=== PATIENT | female | born 1935 | race Caucasian/White ===

== ENCOUNTER 2019-02-14 20:01 | Inpatient (IN) | payer MEDICARE ==
[~2019-02-14] VITALS: Ht 162.6 cm; Wt 68.9 kg
[2019-02-14] MEDS ORDERED: PRAV20 PO (20:25)
[2019-02-14] MEDS ORDERED: ZOLOFT25 MG PO (20:25)
[2019-02-14 21:13] LABS: BASOPHILS ABSOLUTE AUTO 0.07 K/mm3 (0.00-0.23); BASOPHILS PERCENT AUTO 1 % (0-2); EOSINOPHILS ABSOLUTE AUTO 0.13 K/mm3 (0.00-0.68); EOSINOPHILS PERCENT AUTO 1 % (0-6); Hematocrit 35.1 % (33.0-51.0); Hemoglobin 11.1 g/dL (11.5-16.0); IMMATURE GRAN ABSOLUTE AUTO 0.02 K/mm3 (0.00-0.10); IMMATURE GRAN PERCENT AUTO 0 % (0-1); LYMPHOCYTES ABSOLUTE AUTO 1.66 K/mm3 (0.84-5.20); LYMPHOCYTES PERCENT AUTO 17 % (21-46); MONOCYTES ABSOLUTE AUTO 0.57 K/mm3 (0.16-1.47); MONOCYTES PERCENT AUTO 6 % (4-13); Mean Corpuscular HGB 28.4 pg (26.0-34.0); Mean Corpuscular HGB Conc 31.6 g/dL (31.5-36.5); Mean Corpuscular Volume 90 fL (80-100); Mean Platelet Volume 9.1 fL (9.1-12.4); NEUTROPHILS ABSOLUTE AUTO 7.24 K/mm3 (1.96-9.15); NEUTROPHILS PERCENT AUTO 75 % (41-73); Platelet Count 292 K/mm3 (150-400); RDW Coefficient Variation 15.1 % (11.7-14.2); RDW Standard Deviation 49.8 fL (35.1-46.3); Red Blood Cell Count 3.91 M/mm3 (3.80-5.20); White Blood Cell Count 9.69 K/mm3 (4.00-11.30)
[2019-02-14 21:35] LABS: Alanine Aminotransfer (ALT/SGP 13 U/L (12-78); Albumin, Blood 3.1 g/dL (3.4-5.0); Albumin/Globulin Ratio 0.8 (0.8-1.8); Alk Phos 109 U/L (50-136); Anion Gap 8 mmol/L (6-16); Aspartate Aminotrans (AST/SGOT 17 U/L (12-37); Bilirubin, Total 0.6 mg/dL (0.1-1.0); Blood Urea Nitrogen 13 mg/dL (8-24); Bun/Creatinine Ratio 15.9 (12.0-20.0); CO2, Blood 24 mmol/L (21-32); Calcium, Blood 8.4 mg/dL (8.5-10.1); Chloride, Blood 106 mmol/L (98-108); Creatinine, Blood 0.82 mg/dL (0.40-1.00); Glomerular Filtration Rate >60 (60-); Glucose, Blood 95 mg/dL (70-99); Potassium, Blood 3.4 mmol/L (3.5-5.5); Sodium, Blood 138 mmol/L (136-145); Total Protein, Blood 7.1 g/dL (6.4-8.2)
[2019-02-15 05:01] LABS: BASOPHILS ABSOLUTE AUTO 0.05 K/mm3 (0.00-0.23); BASOPHILS PERCENT AUTO 1 % (0-2); EOSINOPHILS ABSOLUTE AUTO 0.01 K/mm3 (0.00-0.68); EOSINOPHILS PERCENT AUTO 0 % (0-6); Hematocrit 32.6 % (33.0-51.0); Hemoglobin 10.7 g/dL (11.5-16.0); IMMATURE GRAN ABSOLUTE AUTO 0.02 K/mm3 (0.00-0.10); IMMATURE GRAN PERCENT AUTO 0 % (0-1); LYMPHOCYTES ABSOLUTE AUTO 1.64 K/mm3 (0.84-5.20); LYMPHOCYTES PERCENT AUTO 16 % (21-46); MONOCYTES ABSOLUTE AUTO 0.74 K/mm3 (0.16-1.47); MONOCYTES PERCENT AUTO 7 % (4-13); Mean Corpuscular HGB 29.3 pg (26.0-34.0); Mean Corpuscular HGB Conc 32.8 g/dL (31.5-36.5); Mean Corpuscular Volume 89 fL (80-100); Mean Platelet Volume 9.3 fL (9.1-12.4); NEUTROPHILS ABSOLUTE AUTO 7.73 K/mm3 (1.96-9.15); NEUTROPHILS PERCENT AUTO 76 % (41-73); Platelet Count 274 K/mm3 (150-400); RDW Coefficient Variation 15.2 % (11.7-14.2); RDW Standard Deviation 49.8 fL (35.1-46.3); Red Blood Cell Count 3.65 M/mm3 (3.80-5.20); White Blood Cell Count 10.19 K/mm3 (4.00-11.30)
--- NOTE | 2019-02-15 06:46 | NUR ---
SHIFT SUMMARY: PT NEW ADMIT LAST NIGHT FROM ER. ADMITTED FOR L HIP FX. A&O X4. VSS. SURGICAL CONSULT CALLED IN. PT BEDREST WITH 1-2 ASSIST. PT ASSISTED ON TO BEDPAN, HOWEVER UNABLE TO VOID. BLADDER SCAN SHOWED 308ML. PT HAS BEEN NPO SINCE MIDNIGHT.
[2019-02-15 08:51] LABS: Source, Urine Catheter
[2019-02-15 08:54] LABS: Bilirubin, Urine Neg (Neg); Blood, Urine Neg (Neg); Glucose Qualitative, Urine Neg (Neg); Ketones, Urine 1+ (Neg); Leukocyte Esterase, Urine Neg (Neg); Nitrite, Urine Neg (Neg); Protein, Urine Neg (Neg); Urobilinogen, Urine 1+ (Normal)
[2019-02-15 08:56] LABS: Appearance, Urine Clear (Clear); Color, Urine Yellow (P-Yellow)
--- NOTE | 2019-02-15 14:52 | NUR ---
PATIENT TO DAY SURGERY AT THIS TIME. DAUGHTER AND NYDIA ACCOMPANYING.
--- NOTE | 2019-02-15 15:13 | NUR ---
History, Chart, Medications and Allergies reviewed before start of procedure.Lungs clear T/O to Auscultation. Patient confirms NPO status and agrees with scheduled surgery. Pre-Op teaching done. Pt verbalizes understanding.
--- NOTE | 2019-02-15 16:36 | NUR ---
02/15/19 16[address] Sia Womack CATHETER [address] PL[address] UPON ARRIVAL TO OR
--- NOTE | 2019-02-15 17:55 | NUR ---
PATIENT RETURNED TO ROOM FROM PACU. AWAKE, GROGGY. VSS. LS COARSE T/O. BIOX 96% ON 4L PER NC. HRR. L HIP DRESSINGS X 2, D&I. PPP. WIGGLES TOES. PAS AND POLAR PACK IN PLACE. FC PATENT, DRAINING CLEAR VENUS URINE. DENIES NAUSEA, PAIN, CP OR SOB. DAUGHTER AT BEDSIDE. CONT TO MONITOR.
--- NOTE | 2019-02-15 19:02 | NUR ---
PATIENT CONT DENY PAIN. TOLERATING SIPS OF WATER, THEN RETURNS TO SLEEP. VSS. BIOX 90-93& ON 4L O2 PER NC. FC PATENT AND DRAINING. L HIP DRESSINGS X2, D&I. NO ACUTE CHANGES SINCE ARRIVAL FROM PACU. CONT TO MONITOR AND REPORT TO NOC RN. =
[2019-02-16 05:02] LABS: BASOPHILS ABSOLUTE AUTO 0.02 K/mm3 (0.00-0.23); BASOPHILS PERCENT AUTO 0 % (0-2); EOSINOPHILS PERCENT AUTO 0 % (0-6); Hematocrit 32.9 % (33.0-51.0); Hemoglobin 10.2 g/dL (11.5-16.0); IMMATURE GRAN ABSOLUTE AUTO 0.03 K/mm3 (0.00-0.10); IMMATURE GRAN PERCENT AUTO 0 % (0-1); LYMPHOCYTES ABSOLUTE AUTO 0.91 K/mm3 (0.84-5.20); LYMPHOCYTES PERCENT AUTO 11 % (21-46); MONOCYTES ABSOLUTE AUTO 0.52 K/mm3 (0.16-1.47); MONOCYTES PERCENT AUTO 6 % (4-13); Mean Corpuscular HGB 28.4 pg (26.0-34.0); Mean Platelet Volume 9.6 fL (9.1-12.4); NEUTROPHILS ABSOLUTE AUTO 7.13 K/mm3 (1.96-9.15); NEUTROPHILS PERCENT AUTO 83 % (41-73); Platelet Count 259 K/mm3 (150-400); RDW Coefficient Variation 15.2 % (11.7-14.2); RDW Standard Deviation 50.7 fL (35.1-46.3); Red Blood Cell Count 3.59 M/mm3 (3.80-5.20); White Blood Cell Count 8.61 K/mm3 (4.00-11.30)
[2019-02-16 05:12] LABS: Mean Corpuscular Volume 92 fL (80-100)
[2019-02-16 05:19] LABS: Anion Gap 6 mmol/L (6-16); Blood Urea Nitrogen 11 mg/dL (8-24); Bun/Creatinine Ratio 21.1 (12.0-20.0); CO2, Blood 26 mmol/L (21-32); Calcium, Blood 8.3 mg/dL (8.5-10.1); Chloride, Blood 106 mmol/L (98-108); Creatinine, Blood 0.52 mg/dL (0.40-1.00); Glomerular Filtration Rate >60 (60-); Glucose, Blood 120 mg/dL (70-99); Magnesium, Blood 1.8 mg/dL (1.6-2.4); Potassium, Blood 4.2 mmol/L (3.5-5.5); Sodium, Blood 138 mmol/L (136-145)
--- NOTE | 2019-02-16 06:20 | NUR ---
SUMMARY PT WITH HICCUP LIKE INSPIRATIONS. EVEN RISE AND FALL OF CHEST.SATS WHILE SLEEPING 91 %,WHILE AWAKE 93% DENIED SOB. STATES LIVES ALONE,SO VERB SHE IS UNABLE TO SAY IF THIS IS NORMAL FOR HER.I DECREASED PILLOW SIZE WHICH IMPROVED THIS APPEARANCE. PT CONTINUED WITH NO SOB.SLEPT QUIETLY BETWEEN REPOSITIONING. AWAKENED EASILY WITH NO DISTRESS.
--- NOTE | 2019-02-16 09:18 | NUR ---
recvd report from previous shift RN Teddy, pt sleeping in bed, bed rails up x 2, bed in lowest position, call light within reach
--- NOTE | 2019-02-16 09:50 | NUR ---
physical therapy with pt, dr Allen rounding on pt
--- NOTE | 2019-02-16 11:10 | NUR ---
OT working with pt
--- NOTE | 2019-02-16 11:40 | NUR ---
family in room with pt
--- NOTE | 2019-02-16 18:25 | NUR ---
shift summary: vss, no acute changes, pt worked with PT/OT this shift, visited by friends/family x 3. pt up to chair for several hours this shift, appears to have taken a nap this afternoon for approx 2 hrs. pt tolerated PO intake with no n/v. rivera catheter dc approx 1815 this shift following bladder training. pt transfers with TTWB, fww/gait belt. l hip dressing c/d/i.
--- NOTE | 2019-02-17 06:47 | NUR ---
CATH DCD PER DAY RN AND PT WITH BLADDER SCAN OF 290ML THIS AM.OOB TO BSC WITH VOID OF 200 ML. WILL CONTINUE TO MONITOR OUTPUT. 2 ASSIST BSC. TOLERATED.
--- NOTE | 2019-02-17 17:33 | NUR ---
STRAIGHT CATH PT REQUIRED STRAIGHT CATH TO EMPTY HER BLADDER. PVR SHOWED 336ML IN HER BLADDER AFTER SHE VOIDED 250ML. 600ML OF URINE WAS EMPTIED WITH STRAIGHT CATH. PT TOLERATED WELL. WILL CONTINUE TO MONITOR.
--- NOTE | 2019-02-17 18:07 | NUR ---
O2 WEANED DURING THE DAY. PT ON RA AT THIS TIME SATURATIONS ARE 90-91%. WILL CONTINUE TO MONITOR. PT IS ON CONTINUOUS PULSE OX.
--- NOTE | 2019-02-17 18:50 | NUR ---
SHIFT SUMMARY PAIN HAS BEEN MANAGED WITH PO PAIN MEDICATION THIS SHIFT. SHE IS A 2 PERSON ASSIST FOR TRANSFERS. PT HAS BEEN ABLE TO VOID BUT WAS UNABLE TO EMPTY HER BLADDER, STRAIGHT CATH NEEDED. PLAN FOR SNF TOMORROW. VSS. WILL MONITOR UNTIL REPORT TO ONCOMING RN.
--- NOTE | 2019-02-18 07:53 | NUR ---
SUMMARY UNABLE TO WEAN O2 WHEN SLEEPING.
--- NOTE | 2019-02-18 08:14 | NUR ---
THERAPY WORKING WITH PT.
--- NOTE | 2019-02-18 09:16 | NUR ---
DR DIAMOND BEEN TO SEE PT. REPORTS WILL DISCUSS PT WITH S.S. TO SEE IF BED AVAIL FOR TRANSFER TO SNF.
--- NOTE | 2019-02-18 13:27 | NUR ---
REPORT GIVEN TO [facility] AT [facility] PT TO BE TRANSFERED TO [facility] TODAY. BOTH IV'S OUT WNL. NO OTHER IV'S IN PLACE. LOAN INTERVIEWER ASSISTED WITH PAPERWORK, SCRIPT WITH PAPERWORK. PT TO BE SENT WITH BELONGINGS. LOAN INTERVIEWER REPORTS TALKING WITH FAMILY.
--- NOTE | 2019-02-18 13:46 | NUR ---
PT TO SNF WITH TRANSPORT WITH PAPERWORK, BELONGINGS, DRESSING SUPPLIES. IV'S BEEN OUT WNL. SCRIPT SENT WITH PAPERWORK.
--- NOTE | 2019-02-18 16:58 | NUR ---
Per admit trigger, I met with Mrs. Martin to offer prayer and encouragement. She is deeply involved in her [employer] shinto community and was appreciaitve of prayer. No fears/concerns presented. She is being d/c to rehab today. She is hopeful for recovery.
== END 2019-02-18 13:47 | DRG 482 ==
LOC: ER 20:01 → SURS 22:08
PROVIDERS: Emergency Medicine; Internal Medicine; Orthopaedic Surgery; ADMIT Hospitalist
PROC: 8E0 Other Procedures, Physiological Systems and Anatomical Regions, Other Procedures (ICD-10-PCS; 2019-02-15)
PROC: 0QS736Z Reposition Left Upper Femur with Intramedullary Internal Fixation Device, Percutaneous Approach (ICD-10-PCS; principal; 2019-02-15 15:30)
DX: S72.142A Displaced intertrochanteric fracture of left femur, initial encounter for closed fracture (principal); W19.XXXA Unspecified fall, initial encounter; Y92.009 Unspecified place in unspecified non-institutional (private) residence as the place of occurrence of the external cause; E78.5 Hyperlipidemia, unspecified; F41.1 Generalized anxiety disorder; D64.9 Anemia, unspecified; E87.6 Hypokalemia; F17.210 Nicotine dependence, cigarettes, uncomplicated; R33.9 Retention of urine, unspecified; R09.02 Hypoxemia
CPT/HCPCS: 36415; 51702; 71045; 73502; 80048; 80053; 81003; 83735; 85025; 93005; 93010; 96374; 97110; 97162; 97166; 97530; 97535; 99284-25; A9270; A9270-GY; C1713; C1769; J0690; J1100; J1170; J1650; J1885; J2250; J2405; J2704; J3010; J7120

== ENCOUNTER 2021-06-03 15:20 | Inpatient (IN) | payer MEDICARE ==
[~2021-06-03] VITALS: Ht 167.6 cm; Wt 53.3 kg
[~2021-06-03 15:20] MED LIST: PRAV20 PO; ZOLOFT25 MG PO
[2021-06-03 19:18] LABS: BASOPHILS PERCENT AUTO 2 % (0-2); EOSINOPHILS ABSOLUTE AUTO 0.03 K/mm3 (0.00-0.68); EOSINOPHILS PERCENT AUTO 1 % (0-6); Hematocrit 35.5 % (33.0-51.0); Hemoglobin 12.4 g/dL (11.5-16.0); IMMATURE GRAN ABSOLUTE AUTO 0.05 K/mm3 (0.00-0.10); IMMATURE GRAN PERCENT AUTO 1 % (0-1); LYMPHOCYTES ABSOLUTE AUTO 1.18 K/mm3 (0.84-5.20); LYMPHOCYTES PERCENT AUTO 19 % (21-46); MONOCYTES ABSOLUTE AUTO 0.24 K/mm3 (0.16-1.47); MONOCYTES PERCENT AUTO 4 % (4-13); Mean Corpuscular HGB 35.4 pg (26.0-34.0); Mean Corpuscular HGB Conc 34.9 g/dL (31.5-36.5); Mean Corpuscular Volume 101 fL (80-100); Mean Platelet Volume 8.8 fL (9.1-12.4); NEUTROPHILS ABSOLUTE AUTO 4.63 K/mm3 (1.96-9.15); NEUTROPHILS PERCENT AUTO 74 % (41-73); Platelet Count 242 K/mm3 (150-400); RDW Standard Deviation 60.6 fL (35.1-46.3); White Blood Cell Count 6.23 K/mm3 (4.00-11.30)
[2021-06-03 19:27] LABS: Alanine Aminotransfer (ALT/SGP 11 U/L (12-78); Albumin, Blood 3.1 g/dL (3.4-5.0); Albumin/Globulin Ratio 0.8 (0.8-1.8); Alk Phos 69 U/L (50-136); Anion Gap 10 mmol/L (6-16); Aspartate Aminotrans (AST/SGOT 13 U/L (12-37); Bilirubin, Total 0.5 mg/dL (0.1-1.0); Blood Urea Nitrogen 22 mg/dL (8-24); CO2, Blood 23 mmol/L (21-32); Calcium, Blood 8.5 mg/dL (8.5-10.1); Chloride, Blood 104 mmol/L (98-108); Creatinine, Blood 0.67 mg/dL (0.40-1.00); Glomerular Filtration Rate >60 (60-); Glucose, Blood 110 mg/dL (70-99); Potassium, Blood 3.5 mmol/L (3.5-5.5); Sodium, Blood 137 mmol/L (136-145); Total Protein, Blood 7.1 g/dL (6.4-8.2)
[2021-06-03] MEDS ORDERED: IBRANCE75 M1 PO (20:50)
[2021-06-04 05:13] LABS: Influenza A, PCR NEGATIVE (NEGATIVE); Influenza B, PCR NEGATIVE (NEGATIVE); Resp Syncytial Virus, PCR NEGATIVE (NEGATIVE); SARS-Cov-2 (COVID-19) PCR, MMC NEGATIVE (NEGATIVE)
--- NOTE | 2021-06-04 13:22 | NUR ---
PT RECENTLY TO [facility] BY BED WITH OTHER STAFF. History, Chart, Medications and Allergies reviewed before start of procedure.Lungs clear T/O to Auscultation. Patient confirms NPO status and agrees with scheduled surgery. Pre-Op teaching done. Pt verbalizes understanding.
--- NOTE | 2021-06-04 15:17 | NUR ---
2 ATTEMPTS BY ORD.LIZA AND ONE PLACEMENT BY ORD.
--- NOTE | 2021-06-04 17:06 | NUR ---
RECIEVED PATIENT VSS RECIEVED REPORTS DRESSING INTACT WAKING UP COMPLAINTS OF PAIN AND BEING COLD GIVEN WARM BLANKETS AND WARMER. STARTED ON PAIN RX AND PLACED ON 02 2 LITERS FOR SAT DROPPING DOWN TO 88%. PATINET MOAINING AND GROANING AT TIMES CURRENTLY MORE RELAXED AND LESS MOANING AND GROANING. FOLOWS COMMANDS.
--- NOTE | 2021-06-04 17:50 | NUR ---
DENIED NEED FOR ADDITIONAL PAIN RX TAKEN TO FLOOR GIVEN REPORT TO RN ON SURGICAL FLOOR NO CHANGES.
--- NOTE | 2021-06-04 18:13 | NUR ---
PATIENT CAME BACK FROM PACU TODAY 06/04/21 AT 1800. POD 0 ORIF LEFT FEMUR PATIENT IS ALERT AND ORIENTED X4. VS ARE WNL AND IS ON RA. PATIENT DENIES PAIN AT THIS TIME. SHE DENIES NUMBNESS AND TINGLING. PATIENT IS ABLE TO WIGGLE FINGERS AND TOES. LEFT LEG IS IN IMMOBILIZER WITH CARROL WRAP AND GAUZE UNDERNEATH THAT ARE C/D/I. PEDAL PULSES ARE STRONG. SHE IS TOLERATING SMALL AMOUNTS OF PO INTAKE. SHE IS TOE TOUCH WT BEARING. PATIENT IS LAYING IN BED. CALL LIGHT WITHIN REACH. THE PLAN IS TO WORK WITH PT/OT AND HAVE PAIN MANAGED.
[2021-06-05 04:16] LABS: Hematocrit 28.3 % (33.0-51.0); Hemoglobin 9.6 g/dL (11.5-16.0); Mean Corpuscular HGB 35.2 pg (26.0-34.0); Mean Corpuscular HGB Conc 33.9 g/dL (31.5-36.5); Mean Corpuscular Volume 104 fL (80-100); Mean Platelet Volume 9.1 fL (9.1-12.4); Platelet Count 205 K/mm3 (150-400); RDW Coefficient Variation 16.1 % (11.7-14.2); RDW Standard Deviation 61.2 fL (35.1-46.3); Red Blood Cell Count 2.73 M/mm3 (3.80-5.20); White Blood Cell Count 6.17 K/mm3 (4.00-11.30)
[2021-06-05 04:46] LABS: Albumin, Blood 2.6 g/dL (3.4-5.0); Anion Gap 6 mmol/L (6-16); Blood Urea Nitrogen 16 mg/dL (8-24); Bun/Creatinine Ratio 31.8 (12.0-20.0); CO2, Blood 27 mmol/L (21-32); Calcium, Blood 7.7 mg/dL (8.5-10.1); Chloride, Blood 104 mmol/L (98-108); Glomerular Filtration Rate >60 (60-); Glucose, Blood 117 mg/dL (70-99); Phosphorus, Blood 2.6 mg/dL (2.5-4.9); Sodium, Blood 137 mmol/L (136-145)
--- NOTE | 2021-06-05 08:36 | NUR ---
SUMMARY PT ALERT TONIGHT. MINIMAL PAIN AND ABLE TO ASSIST FOR REPOSITIONING. VOIDING. HAVE NO ACTIVITY ORDERS POSTOP,ALTHOUGH WITH LLE IMMOBILIZER PT ON BEDREST AT THIS TIME.DAY RN AGREES TO FOLLOW UP ON POSTOP ACTIVITY AND OTHER POSTOP ORDERS.
--- NOTE | 2021-06-05 19:20 | NUR ---
SHIFT SUMMARY PT IS POD#1 FOR L FEMUR FRACTURE. PT HAS DRESSING AND LEG IMMOBILIZER IN PLACE. SHE IS ALERT AND ORIENTED X4. PT CAN HELP WITH REPOSITIONING. PT IS CONTINENT AND PREFERS TO USE BEDBAN. UP WITH PHYSICAL THERAPY TO BEDSIDE CHAIR. PT TOLLERATED THE ACTIVITY WELL. TOE TOUCH ACTIVITY ORDER. HAS DECLINED THE NEED FOR PAIN MEDICATION SINCE THE AM. SHE IS A TWO PERSON ASSIST. PT STATED HER SISTER WILL BRING HER IBRANCE MEDICATION TOMORROW. REPORT GIVEN TO [facility] NURSE BY TOBY HACKETT.
--- NOTE | 2021-06-06 09:06 | NUR ---
DR ARMSTRONG ROUNDED. DISCUSSED POSSIBLE NEED FOR BLOOD THINNER POST OP. WILL CONTINUE TO MONITOR.
--- NOTE | 2021-06-06 19:43 | NUR ---
SHIFT SUMMARY PT IS POD#2 FOR L FEMUR REPAIR. PAIN MANAGED WITH [facility]. 1 ASSIST FOR TRANSFERS. POSSIBLE DC HOME WITH HOME HEALTH TOMORROW. VSS. REPORT GIVEN TO JOSELIN BAEZ.
--- NOTE | 2021-06-07 07:40 | NUR ---
SUMMARY MED PO FOR PAIN THIS AM. PT HOPING FOR POSSIBLE DISCHARGE TODAY.
[2021-06-07] MEDS ORDERED: HYDROCODONE-AC1 EA10 PO (11:58)
--- NOTE | 2021-06-07 11:58 | NUR ---
Received referral from nurse career placement specialist (Chika Zazueta) on 06/07/2021. Patient is to discharge 06/07/2021 with orders for home health and elected [facility]. Met with patient to further discuss the above. Patient is agreeable to the above. Discussed homebound status definition with patient. Patient verbalized understanding. Discussed what home health is vs what it is not (in home caregivers/housekeeping). Patient verbalized understanding. Discussed the next steps in the process of an initial assessment to determine frequency of visits. Again patient verbalized understanding. Offered a chance for patient to ask questions regarding the above of which there were none. At this time patient has no discharge orders entered. Will continue to monitor and follow for discharge. Breana Cerda Referral Liaison
[2021-06-07] MEDS ORDERED: XARELTO20 MG PO (11:59)
--- NOTE | 2021-06-07 13:20 | NUR ---
DISCHARGE CLEARED BY THERAPY TO D/C HOME W/ HOME HEALTH. AMBULATING WELL W/ FWW & GB, TOE-TOUCH WEIGHT BEARING ON LEFT LEG, IMMOBILIZER IN PLACE. EATING, DRINKING, & VOIDING WELL. 1 RX FAXED TO PHARMACY, 1 SENT W/ PATIENT. DISCUSSED DISCHARGE INSTRUCTIONS & SENT W/ PATIENT. ESCORTED OUT VIA W/C.
--- NOTE | 2021-06-07 15:23 | NUR ---
Patient has now discharged. Gathered all supporting documentation for referral (face sheet, face to face, med list, H&P, and most recent PT assessment) and sent to [facility] for review. No further interventions required. Breana Cerda Referral Liaison
== END 2021-06-07 13:26 | disposition home health service (06) | DRG 481 ==
LOC: ER 15:20 → SURS 20:37
PROVIDERS: Internal Medicine; Orthopaedic Surgery; ADMIT Internal Medicine
PROC: 0QSC04Z Reposition Left Lower Femur with Internal Fixation Device, Open Approach (ICD-10-PCS; principal; 2021-06-04 14:30)
DX: S72.402A Unspecified fracture of lower end of left femur, initial encounter for closed fracture (principal); C79.9 Secondary malignant neoplasm of unspecified site; Z20.822 Contact with and (suspected) exposure to COVID-19; D64.9 Anemia, unspecified; F41.1 Generalized anxiety disorder; E78.5 Hyperlipidemia, unspecified; W18.30XA Fall on same level, unspecified, initial encounter; Y93.H2 Activity, gardening and landscaping; Z96.642 Presence of left artificial hip joint; Z79.899 Other long term (current) drug therapy; Z85.3 Personal history of malignant neoplasm of breast; Z87.891 Personal history of nicotine dependence; Z90.12 Acquired absence of left breast and nipple
CPT/HCPCS: 0241U; 29505; 36415; 73552; 73564; 80053; 80069; 85025; 85027; 94762; 97110; 97116; 97161; 97165; 97530; 97535; 99285-25; A9270; C1713; J0171; J0690; J1100; J2270; J2370; J2405; J2704; J3010; J7040; J7120

== ENCOUNTER → 2022-06-20 | Outpatient (CLI) | payer MEDICARE ==
[~2022-06-20] MED LIST changes: +HYDROCODONE-AC1 EA10 PO; +IBRANCE75 M1 PO; +XARELTO20 MG PO
[2022-06-20 13:51] LABS: Hemoglobin 13.9 g/dL (11.5-16.0); Mean Corpuscular HGB 34.3 pg (26.0-34.0); Mean Corpuscular HGB Conc 33.9 g/dL (31.5-36.5); Mean Corpuscular Volume 101 fL (80-100); RDW Standard Deviation 56.4 fL (35.1-46.3); Red Blood Cell Count 4.05 M/mm3 (3.80-5.20); White Blood Cell Count 3.84 K/mm3 (4.00-11.30)
[2022-06-20 14:14] LABS: BASOPHILS PERCENT MAN 0 % (0-2); EOSINOPHILS PERCENT MAN 2 % (0-6); LYMPHOCYTES PERCENT MAN 32 % (21-46); MONOCYTES PERCENT MAN 4 % (4-13); SEG NEUTROPHILS PERCENT MAN 62 % (41-73); TOTAL CELLS COUNTED 100
[2022-06-20 14:15] LABS: IMMATURE GRAN ABSOLUTE AUTO 0.02 K/mm3 (0.00-0.10); IMMATURE GRAN PERCENT AUTO 1 % (0-1); LYMPHOCYTES ABSOLUTE AUTO 1.23 K/mm3 (0.84-5.20); LYMPHOCYTES PERCENT AUTO 32 % (21-46); MONOCYTES ABSOLUTE AUTO 0.25 K/mm3 (0.16-1.47); MONOCYTES PERCENT AUTO 7 % (4-13); NEUTROPHILS ABSOLUTE AUTO 2.21 K/mm3 (1.96-9.15); NEUTROPHILS PERCENT AUTO 58 % (41-73); Platelet Count 409 K/mm3 (150-400)
[2022-06-20 15:03] LABS: Albumin, Blood 3.3 g/dL (3.4-5.0); Albumin/Globulin Ratio 0.7 (0.8-1.8); Bilirubin, Total 0.5 mg/dL (0.1-1.0); Bun/Creatinine Ratio 18.5 (12.0-20.0); Calcium, Blood 8.7 mg/dL (8.5-10.1); Creatinine, Blood 0.59 mg/dL (0.40-1.00); Globulin, Blood 4.6 g/dL (2.2-4.0); Potassium, Blood 4.1 mmol/L (3.5-5.5); Total Protein, Blood 7.9 g/dL (6.4-8.2)
== END | disposition home or self-care (01) ==
LOC: LAB 11:40 → LAB SHORT 11:40
PROVIDERS: Internal Medicine Hematology & Oncology
DX: C50.919 Malignant neoplasm of unspecified site of unspecified female breast (principal)
CPT/HCPCS: 80053; 85025

== ENCOUNTER → 2023-08-28 | Outpatient (CLI) | payer MEDICARE | LOC: LAB 14:38 → LAB SHORT 14:38 | DX: N39.0 Urinary tract infection, site not specified (principal) | CPT/HCPCS: 87077; 87086; 87186 ==